=== PATIENT | male | born 1995 | race Caucasian/White ===

== ENCOUNTER 2022-07-05 17:12 | Emergency (ER) | payer SELFPAY ==
[2022-07-05 18:14] VITALS: BP 130/78; PULSE 106; RESP 17; TEMP 98; BMI 41.3
[2022-07-05] MEDS ORDERED: ASPIRIN 81 MG CHEWABLE TABLETS PO ONE (19:18)
[2022-07-05] MEDS ORDERED: ASPIRIN 81 MG CHEWABLE TABLETS ONE (20:31)
[2022-07-05 21:24] LABS: BASO % 0.6 % (0-2.0); HEMATOCRIT 41.5 % (35.4-49); HEMOGLOBIN 14.2 GM/dL (11.7-16.9); LYMPH % 27.5 % (8-40); MCH 30.4 pg (25.7-33.7); MCHC 34.3 g/dl (32.0-35.9); MEAN CELL VOLUME 88.6 fl (80-96); MEAN PLT VOLUME 8.4 fl (7.5-11.1); MONO % 6.4 % (3.8-10.2); NEUT % 64.5 % (42.8-82.8); PLATELET COUNT 262 10^3/uL (134-434); RBC 4.68 M/mm3 (4.00-5.60); RDW 12.8 % (11.9-15.9); WHITE BLOOD COUNT 8.6 K/mm3 (4.0-10.0)
[2022-07-05 21:43] LABS: INR 1.02 (0.83-1.09); PROTHROMBIN TIME (PATIENT) 11.7 SEC (9.7-13.0)
[2022-07-05 21:45] LABS: ACTIVATED PTT 35.8 SECONDS (25.2-36.5)
[2022-07-05 21:47] LABS: CALCIUM 8.7 mg/dL (8.5-10.1)
[2022-07-05 21:48] LABS: ALBUMIN 3.9 g/dl (3.4-5.0); BLOOD UREA NITROGEN 13.7 mg/dL (7-18); MAGNESIUM 2.3 mg/dL (1.8-2.4)
[2022-07-05 21:51] LABS: CREATININE 1.1 mg/dL (0.55-1.3)
[2022-07-05 21:53] LABS: BILIRUBIN,TOTAL 0.2 mg/dL (0.2-1); TOT PROT 7.5 g/dl (6.4-8.2)
[2022-07-05 22:02] LABS: URINE APPEARANCE CLEAR; URINE BILIRUBIN NEGATIVE (NEGATIVE); URINE COLOR YELLOW; URINE GLUCOSE (UA) NEGATIVE (NEGATIVE); URINE KETONE NEGATIVE (NEGATIVE); URINE LEUK ESTERASE NEGATIVE (NEGATIVE); URINE NITRITE NEGATIVE (NEGATIVE); URINE PROTEIN NEGATIVE (NEGATIVE)
== END 2022-07-05 23:06 | disposition home or self-care (01) ==
LOC: JER 17:12
DX: R00.2 Palpitations (principal)
CPT/HCPCS: 36415; 71046-TC-FY; 80053; 81003; 83735; 84484; 85025; 85379; 85610; 85730; 93005; 93010; 99285-25

== ENCOUNTER 2023-03-30 12:00 | Emergency (ER) | payer BC ==
[2023-03-30 12:04] VITALS: BMI 41.3
[2023-03-30] MEDS ORDERED: ALBUTEROL SO4 2.5/IPRATROPIUM 0.5 INH SOL 3 ML VIAL.NEB. NEB ONE ×2 (12:19→12:22)
[2023-03-30 13:15] VITALS: BP 132/75; PULSE 106; RESP 20; TEMP 98
== END 2023-03-30 13:15 | disposition home or self-care (01) ==
LOC: JERFT 12:00
PROC: 3E0F7GC Introduction of Other Therapeutic Substance into Respiratory Tract, Via Natural or Artificial Opening (ICD-10-PCS; principal; 2023-03-30)
DX: J45.901 Unspecified asthma with (acute) exacerbation (principal); R07.89 Other chest pain; R07.0 Pain in throat; R05.9 Cough, unspecified
CPT/HCPCS: 71046-TC-FY; 93005; 93010; 99284-25

== ENCOUNTER 2023-05-26 09:20 | Emergency (ER) | payer BC ==
[2023-05-26 09:34] VITALS: TEMP 97.3; BMI 41.3
[2023-05-26] MEDS ORDERED: KETOROLAC TROMETHAMINE 15 MG/ML VIAL IVPUSH ONE (10:24)
[2023-05-26] MEDS ORDERED: KETOROLAC TROMETHAMINE 15 MG/ML VIAL ONE (10:34)
[2023-05-26 10:43] LABS: INR 1.02 (0.83-1.09); PROTHROMBIN TIME (PATIENT) 11.8 SEC (9.7-13.0)
[2023-05-26 10:46] LABS: ACTIVATED PTT 34.5 SECONDS (25.2-36.5)
[2023-05-26 10:54] LABS: BASO % 0.4 % (0-2.0); EOS % 1.3 % (0-4.5); HEMATOCRIT 41.6 % (35.4-49); HEMOGLOBIN 14.1 GM/dL (11.7-16.9); LYMPH % 28.7 % (8-40); MCH 29.7 pg (25.7-33.7); MCHC 33.9 g/dl (32.0-35.9); MEAN CELL VOLUME 87.8 fl (80-96); MEAN PLT VOLUME 8.8 fl (7.5-11.1); MONO % 7.7 % (3.8-10.2); NEUT % 61.9 % (42.8-82.8); PLATELET COUNT 235 10^3/uL (134-434); RBC 4.74 M/mm3 (4.00-5.60); RDW 13.1 % (11.9-15.9); WHITE BLOOD COUNT 7.8 K/mm3 (4.0-10.0)
[2023-05-26 10:59] LABS: POTASSIUM 4.2 mmol/L (3.5-5.1)
[2023-05-26 11:02] LABS: CALCIUM 8.8 mg/dL (8.5-10.1)
[2023-05-26 11:03] LABS: ALBUMIN 4.1 g/dl (3.4-5.0); BLOOD UREA NITROGEN 14.8 mg/dL (7-18)
[2023-05-26 11:08] LABS: BILIRUBIN,TOTAL 0.4 mg/dL (0.2-1); TOT PROT 7.6 g/dl (6.4-8.2)
[2023-05-26 11:31] VITALS: BP 120/73; PULSE 86; RESP 25
== END 2023-05-26 13:30 | disposition home or self-care (01) ==
LOC: JER 09:20
PROC: 3E0333Z Introduction of Anti-inflammatory into Peripheral Vein, Percutaneous Approach (ICD-10-PCS; principal; 2023-05-26)
DX: R07.9 Chest pain, unspecified (principal); R68.84 Jaw pain
CPT/HCPCS: 36415; 71045-TC-FY; 80053; 84439; 84443; 84484; 85025; 85379; 85610; 85730; 93005; 93010; 99285-25

== ENCOUNTER 2023-10-20 09:08 | Emergency (ER) | payer BC ==
[2023-10-20 09:20] VITALS: BP 152/89; PULSE 104; RESP 24; TEMP 97.7; BMI 39.9
[2023-10-20] MEDS ORDERED: ALBUTEROL SO4 2.5/IPRATROPIUM 0.5 INH SOL 3 ML VIAL.NEB. NEB ONE ×2 (09:55→10:01)
== END 2023-10-20 12:05 | disposition home or self-care (01) ==
LOC: JER 09:08
PROC: 3E0F7GC Introduction of Other Therapeutic Substance into Respiratory Tract, Via Natural or Artificial Opening (ICD-10-PCS; principal; 2023-10-20)
DX: R05.9 Cough, unspecified (principal); R07.89 Other chest pain; R09.89 Other specified symptoms and signs involving the circulatory and respiratory systems; R06.02 Shortness of breath; R06.2 Wheezing; J40 Bronchitis, not specified as acute or chronic; Z20.822 Contact with and (suspected) exposure to COVID-19
CPT/HCPCS: 0241U-QW; 71046-TC-FY; 93005; 93010; 99285-25

== ENCOUNTER 2024-03-01 17:22 | Emergency (ER) | payer BC ==
[2024-03-01 17:37] VITALS: BP 129/83; PULSE 99; RESP 18; TEMP 98.1; BMI 41.3
== END 2024-03-01 18:56 | disposition home or self-care (01) ==
LOC: JERFT 17:22
PROC: 0H9GXZZ Drainage of Left Hand Skin, External Approach (ICD-10-PCS; principal; 2024-03-01)
DX: L03.012 Cellulitis of left finger (principal)
CPT/HCPCS: 99283-25

== ENCOUNTER 2024-04-25 17:04 | Emergency (ER) | payer BC ==
[2024-04-25 17:23] VITALS: BP 148/82; RESP 20; BMI 39.9
[2024-04-25] MEDS: SODIUM CHLORIDE 0.9% 500 ML INFUS.BAG IV ONE (18:13)
[2024-04-25 18:19] LABS: BASO % 0.6 % (0-2.0); EOS % 1.9 % (0-4.5); LYMPH % 28.7 % (8-40); MCH 29.8 pg (25.7-33.7); MCHC 34.1 g/dl (32.0-35.9); MEAN CELL VOLUME 87.4 fl (80-96); MEAN PLT VOLUME 8.6 fl (7.5-11.1); MONO % 6.1 % (3.8-10.2); NEUT % 62.7 % (42.8-82.8); PLATELET COUNT 223 10^3/uL (134-434); RBC 4.69 M/mm3 (4.00-5.60); RDW 12.9 % (11.9-15.9)
[2024-04-25 18:44] LABS: POTASSIUM 4.6 mmol/L (3.5-5.1)
[2024-04-25 18:46] LABS: CALCIUM 8.4 mg/dL (8.5-10.1)
[2024-04-25 18:47] LABS: ALBUMIN 3.8 g/dl (3.4-5.0); BLOOD UREA NITROGEN 16.1 mg/dL (7-18)
[2024-04-25 18:50] LABS: CREATININE 0.9 mg/dL (0.55-1.3)
[2024-04-25 18:52] LABS: BILIRUBIN,TOTAL 0.2 mg/dL (0.2-1); TOT PROT 7.4 g/dl (6.4-8.2)
[2024-04-25 19:40] VITALS: PULSE 90; TEMP 98.6
== END 2024-04-25 19:46 | disposition home or self-care (01) ==
LOC: JER 17:04
DX: U07.1 COVID-19 (principal); R00.2 Palpitations; R07.89 Other chest pain; R05.9 Cough, unspecified; R42 Dizziness and giddiness
CPT/HCPCS: 36415; 71046-TC-FY; 80053; 83735; 84443; 84484; 85025; 93005; 93010; 99285-25

== ENCOUNTER 2024-11-14 03:41 | Emergency (ER) | payer BC ==
[2024-11-14 03:46] VITALS: BP 122/87; PULSE 111; RESP 20; TEMP 99.3; BMI 41.3
[2024-11-14] MEDS ORDERED: ONDANSETRON 4 MG/2 ML VIAL ONE (04:35)
[2024-11-14] MEDS ORDERED: FAMOTIDINE 20 MG/50 ML IVPB 20 MG/50 ML MG IVPB ONE (04:35)
[2024-11-14] MEDS: FAMOTIDINE 20 MG/50 ML IVPB 20 MG/50 ML MG IVPB ONE (04:47)
[2024-11-14] MEDS: ONDANSETRON 4 MG/2 ML VIAL IVPB ONE (04:47)
[2024-11-14] MEDS: SODIUM CHLORIDE 0.9% 500 ML INFUS.BAG IV ONE (04:47)
[2024-11-14 04:56] LABS: HEMATOCRIT 43.6 % (35.4-49); HEMOGLOBIN 14.7 GM/dL (11.7-16.9); MCH 29.6 pg (25.7-33.7); MCHC 33.7 g/dl (32.0-35.9); MEAN CELL VOLUME 87.8 fl (80-96); MEAN PLT VOLUME 8.2 fl (7.5-11.1); PLATELET COUNT 246 10^3/uL (134-434); RBC 4.96 M/mm3 (4.00-5.60); WHITE BLOOD COUNT 10.6 K/mm3 (4.0-10.0)
[2024-11-14 05:21] LABS: POTASSIUM 4.4 mmol/L (3.5-5.1)
[2024-11-14 05:23] LABS: ALBUMIN 4.2 g/dl (3.4-5.0); BLOOD UREA NITROGEN 14.2 mg/dL (7-18); CALCIUM 9.2 mg/dL (8.5-10.1)
[2024-11-14 05:27] LABS: CREATININE 1.1 mg/dL (0.55-1.3); PHOSPHOROUS 3.4 mg/dL (2.5-4.9)
[2024-11-14 05:28] LABS: BILIRUBIN,TOTAL 0.7 mg/dL (0.2-1)
[2024-11-14 10:15] LABS: ANISOCYTOSIS 0; HELMET CELLS 0; HOWELL-JOLLY BODIES 0; MACROCYTOSIS 0; OVALOCYTE 0; ROULEAU 0; SICKELED CELLS 0; TARGET CELLS 0; TEAR DROP CELLS 0; TOXIC GRANULATION 0
== END 2024-11-14 06:15 | disposition home or self-care (01) ==
LOC: JER 03:41
PROC: 3E033GC Introduction of Other Therapeutic Substance into Peripheral Vein, Percutaneous Approach (ICD-10-PCS; principal; 2024-11-14)
PROC: 3E033GC Introduction of Other Therapeutic Substance into Peripheral Vein, Percutaneous Approach (ICD-10-PCS; 2024-11-14)
DX: R11.2 Nausea with vomiting, unspecified (principal); R19.7 Diarrhea, unspecified; R10.84 Generalized abdominal pain; Z20.822 Contact with and (suspected) exposure to COVID-19
CPT/HCPCS: 0241U-QW; 36415; 80053; 83690; 83735; 84100; 85025; 93005; 93010; 99284-25

== ENCOUNTER 2025-03-28 09:51 | Emergency (ER) | payer BC ==
[2025-03-28 10:01] VITALS: BP 141/96; PULSE 105; RESP 20; TEMP 97.9; BMI 41.3
[2025-03-28] MEDS ORDERED: DEXAMETHASONE SOD PHOSPHATE 10 MG/1 ML VIAL ONE (10:58)
[2025-03-28] MEDS ORDERED: ACETAMINOPHEN 500 MG TABLET (FP) ONE (10:58)
[2025-03-28] MEDS: ACETAMINOPHEN 500 MG TABLET (FP) PO ONE (11:04)
[2025-03-28] MEDS: DEXAMETHASONE SOD PHOSPHATE 10 MG/1 ML VIAL PO ONE (11:04)
[2025-03-28 11:47] LABS: THROAT:GRP A STREP NOT DETECTED (NOTDETECTED)
[2025-03-28 11:51] LABS: SARS COV-2 MOLECULAR IN-HOUSE NEGATIVE (NEGATIVE)
== END 2025-03-28 12:06 | disposition home or self-care (01) ==
LOC: JERFT 09:51
DX: J02.9 Acute pharyngitis, unspecified (principal)
CPT/HCPCS: 87635; 87651; 99283-25; J1100

== ENCOUNTER 2025-06-08 09:35 | Emergency (ER) | payer BC ==
[2025-06-08 09:44] VITALS: BP 138/76; PULSE 96; RESP 20; TEMP 98.8; BMI 42.8
== END 2025-06-08 10:15 | disposition home or self-care (01) ==
LOC: JER 09:35 → JERFT 09:35
DX: U07.1 COVID-19 (principal); R09.81 Nasal congestion; J02.9 Acute pharyngitis, unspecified; M79.10 Myalgia, unspecified site; J06.9 Acute upper respiratory infection, unspecified
CPT/HCPCS: 87637-QW; 99283-25